=== PATIENT | female | born 1935 | race Caucasian/White ===

== ENCOUNTER 2017-02-22 06:33 | Inpatient (IN) | payer OTHER, BC ==
[~2017-02-22] VITALS: Ht 160 cm; Wt 89.1 kg
[~2017-02-22 06:33] MED LIST: ALBUTEROL SULF8.5 GM IH; AMLODIPINE BESY10 MG GT; AMLODIPINE BESY10 MG PO; APLISOL5 TUB UNIT ID; ASPIRIN81 M2 GT; ASPIRIN81 M2 PO; Aspirin E.C. PO; CARDIZEM CD120 MG PO; CATAPRES0.1 MG PO; CEFTIN500 MG PO; CITALOPRAM HBR10 MG GT; CITALOPRAM HBR10 MG PO; CLOPIDOGREL75 MG GT; CLOPIDOGREL75 MG PO; DITROPAN XL5 MG PO; DITROPAN5 MG PO; DOXYCYCLINE HY100 MG GT; DOXYCYCLINE HY100 MG PO; FLONASE16 G1 BOTH NARES; K-DUR20 MEQ PO; KEFLEX500 MG PO; KLOR-CON M2020 MEQ PO; LASIX40 MG PO; LEVOFLOXACIN500 MG PO; LIPITOR80 MG PO; LISINOPRIL10 MG PO; LOPRESSOR25 MG GT; LOW DOSE ASPIRI81 M1 PO; METHYLPREDNISOLO4 MG PO; MIRTAZAPINE15 MG PO; MIRTAZAPINE7.5 MG PO; MUCINEX DM ER1 EACH PO; NORVASC10 MG PO; NORVASC2.5 MG PO; OXCARBAZEPINE300 MG GT; OXCARBAZEPINE300 MG PO; PAXIL20 MG PO; PLAVIX75 MG PO; PRAVASTATIN SOD80 MG GT; PRAVASTATIN SOD80 MG PO; PROAIR HFA8.5 GM IH; REMERON15 M2 GT; TESSALON PERLE100 MG PO; TOPROL XL25 MG PO; TRILEPTAL300 MG PO; TRILEPTAL600 MG PO; TYLENOL EXTRA500 MG PO; TYLENOL REGULA325 MG PO; WELLBUTRIN XL300 MG PO; WELLBUTRIN75 MG PO; XARELTO15 MG PO; ZOCOR40 MG PO; ZYRTEC10 M2 PO
[2017-02-22 08:01] LABS: MCH 31.1 PG (29.0-34.0); MCHC 32.6 G/DL (30.0-36.0); MCV 95.5 FL (83-99); MEAN PLAT.VOLUME 9.5 uM^3 (9.5-12.4); PLATELET COUNT 221 K/uL (156-360); RBC DIS.WIDTH-CV 12.8 % (11.8-14.6); RBC DIS.WIDTH-SD 45.1 % (39-53); WHITE BLOOD COUNT 9.3 K/uL (4.1-10.2)
[2017-02-22 08:11] LABS: INTER. NORMALIZED RATIO 1.3; PROTHROMBIN TIME 12.8 (9.2-11.2)
[2017-02-22 08:22] LABS: CHLORIDE 103 mEq/L (99-109); POTASSIUM 4.2 mEq/L (3.7-5.4); SODIUM 140 mEq/L (136-147)
[2017-02-22 08:24] LABS: GLUCOSE 115 mg/dL (70-99)
[2017-02-22 08:25] LABS: ANION GAP 12 MEQ/L (2-14)
[2017-02-22 08:26] LABS: TOTAL BILIRUBIN 0.6 mg/dL (0.0-1.0)
[2017-02-22 08:27] LABS: ALKALINE PHOSPHATASE 123 IU/L (3-129); TROP-I INTERPRETATION NEGATIVE; TROPONIN-I 0.03 ng/mL (0.0-0.30)
[2017-02-22 08:28] LABS: GFR ESTIMATE (CALCULATED) 51 mL/min/
[2017-02-22 08:29] LABS: UREA NITROGEN (BUN) 22 mg/dL (9-23)
[2017-02-22 08:40] LABS: INFLUENZA A VIRAL ANTIGEN POSITIVE; INFLUENZA B VIRAL ANTIGEN NEGATIVE
[2017-02-22 08:51] LABS: ADD MIUA? YES; BILIRUBIN NEGATIVE; BLOOD LARGE; COLOR YELLOW ((YELLOW)); GLUCOSE (STRIP) NEGATIVE; KETONES NEGATIVE; LEUKOCYTES MODERATE; NITRITE NEGATIVE; PROTEIN (STRIP) 30; SPECIFIC GRAVITY 1.017 (1.000-1.030); UROBILINOGEN 0.2 MG/DL (0.2-1.0)
[2017-02-22 09:07] LABS: BACTERIA RARE /HPF; EPITHELIAL CELLS RARE /HPF; MUCUS TRACE /LPF; RED BLOOD CELLS 40-50 /HPF (0-5); WHITE BLOOD CELLS TNTC /HPF (0-5)
[2017-02-22] MEDS ORDERED: CARDIZEM CD120 MG PO (11:27)
[2017-02-22] MEDS ORDERED: PRINIVIL10 MG PO (11:28)
[2017-02-22] MEDS ORDERED: REMERON15 M2 PO (11:29)
[2017-02-22] MEDS ORDERED: DAILY VITAMIN1 EAC4 PO (11:31)
[2017-02-22] MEDS ORDERED: NORVASC10 MG PO (11:32)
[2017-02-22] MEDS ORDERED: LOPRESSOR25 MG PO (11:32)
[2017-02-22] MEDS ORDERED: NYSTATIN15 GM TP (11:33)
[2017-02-22] MEDS ORDERED: BESIVANCE5 ML LEFT EYE (11:34)
[2017-02-22] MEDS ORDERED: DUREZOL 0.100 DROP/5 LEFT EYE (11:34)
[2017-02-22] MEDS ORDERED: ILEVRO1.7 ML LEFT EYE (11:34)
[2017-02-22] MEDS ORDERED: CARDIZEM120 MG PO (12:56)
[2017-02-22 14:55] VITALS: BP 133/92
[2017-02-22 19:31] VITALS: BP 165/77
[2017-02-22 23:16] VITALS: BP 128/67
[2017-02-23 03:11] VITALS: BP 137/71
[2017-02-23 08:52] VITALS: BP 158/90
[2017-02-23 14:15] VITALS: BP 144/74
[2017-02-23 15:00] VITALS: BP 123/88
[2017-02-23 20:00] VITALS: BP 145/93
[2017-02-24] VITALS: BP 136/102
[2017-02-24 04:00] VITALS: BP 106/63
[2017-02-24 08:27] VITALS: BP 146/79
[2017-02-24 08:47] LABS: MCH 30.9 PG (29.0-34.0); MCHC 32.1 G/DL (30.0-36.0); MCV 96.3 FL (83-99); MEAN PLAT.VOLUME 9.9 uM^3 (9.5-12.4); PLATELET COUNT 234 K/uL (156-360); RBC DIS.WIDTH-CV 12.7 % (11.8-14.6); RED BLOOD COUNT 4.05 M/uL (3.80-5.20); WHITE BLOOD COUNT 6.6 K/uL (4.1-10.2)
[2017-02-24 09:02] LABS: ANION GAP 8 MEQ/L (2-14); CHLORIDE 107 MEQ/L (99-109); GFR ESTIMATE (CALCULATED) > 59 mL/min/; GLUCOSE 84 mg/dL (70-99); POTASSIUM 3.8 MEQ/L (3.7-5.4); SAMPLE HEMOLYSIS CHECK 0; SAMPLE ICTERIC CHECK 0; SAMPLE LIPEMIA CHECK 0; SODIUM 143 MEQ/L (136-147); UREA NITROGEN (BUN) 19 mg/dL (9-23)
[2017-02-24 22:51] VITALS: BP 151/93
[2017-02-25 06:52] LABS: MCH 31.7 PG (29.0-34.0); MCV 94.8 FL (83-99); RED BLOOD COUNT 4.01 M/uL (3.80-5.20); WHITE BLOOD COUNT 6.4 K/uL (4.1-10.2)
[2017-02-25 06:53] LABS: MCHC 33.4 G/DL (30.0-36.0); MEAN PLAT.VOLUME 9.8 uM^3 (9.5-12.4); PLATELET COUNT 257 K/uL (156-360); RBC DIS.WIDTH-CV 12.7 % (11.8-14.6); RBC DIS.WIDTH-SD 44.3 % (39-53)
[2017-02-25 07:20] LABS: ANION GAP 11 MEQ/L (2-14); CHLORIDE 106 MEQ/L (99-109); GFR ESTIMATE (CALCULATED) 57 mL/min/; GLUCOSE 85 mg/dL (70-99); POTASSIUM 4.2 MEQ/L (3.7-5.4); SAMPLE HEMOLYSIS CHECK 0; SAMPLE ICTERIC CHECK 0; SAMPLE LIPEMIA CHECK 0; SODIUM 143 MEQ/L (136-147); UREA NITROGEN (BUN) 21 mg/dL (9-23)
[2017-02-25 08:00] VITALS: BP 151/85
[2017-02-26] VITALS: BP 118/76
[2017-02-26 08:03] VITALS: BP 146/77
[2017-02-26] MEDS ORDERED: TAMIFLU30 MG PO (13:02)
== END 2017-02-26 14:21 | disposition home health service (06) | DRG 194 ==
LOC: EME 06:33 → 5SOUTH 10:56 → EDOF 10:56 → 5SOUTH 14:32
PROVIDERS: Emergency Medicine; Internal Medicine
DX: J10.1 Influenza due to other identified influenza virus with other respiratory manifestations (principal); N30.00 Acute cystitis without hematuria; I48.91 Unspecified atrial fibrillation; R55 Syncope and collapse; I25.10 Atherosclerotic heart disease of native coronary artery without angina pectoris; G89.29 Other chronic pain; F01.50 Vascular dementia, unspecified severity, without behavioral disturbance, psychotic disturbance, mood disturbance, and anxiety; R53.1 Weakness; R09.02 Hypoxemia; F32.9 Major depressive disorder, single episode, unspecified; I10 Essential (primary) hypertension; E78.5 Hyperlipidemia, unspecified; I25.2 Old myocardial infarction; Z86.73 Personal history of transient ischemic attack (TIA), and cerebral infarction without residual deficits; Z95.5 Presence of coronary angioplasty implant and graft; Z87.891 Personal history of nicotine dependence; Z88.2 Allergy status to sulfonamides; Z98.890 Other specified postprocedural states
CPT/HCPCS: 71020; 80048; 80053; 81003; 83605; 83880; 84484; 85027; 85610; 85730; 87040; 87502; 93005; 94640; 94640 76; 94799; 97530 GP; 99202; 99281; 99285; J0696; J7030; J7050

== ENCOUNTER 2017-10-26 11:30 | Emergency (ER) | payer OTHER, BC ==
[~2017-10-26] VITALS: Ht 162.6 cm; Wt 81.4 kg
[~2017-10-26 11:30] MED LIST changes: +BESIVANCE5 ML LEFT EYE; +CARDIZEM120 MG PO; +DAILY VITAMIN1 EAC4 PO; +DUREZOL 0.100 DROP/5 LEFT EYE; +ILEVRO1.7 ML LEFT EYE; +LOPRESSOR25 MG PO; +NYSTATIN15 GM TP; +PRINIVIL10 MG PO; +REMERON15 M2 PO; +TAMIFLU30 MG PO
[2017-10-26 12:44] LABS: ADD MIUA? YES; BILIRUBIN NEGATIVE; BLOOD MODERATE; COLOR YELLOW ((YELLOW)); GLUCOSE (STRIP) NEGATIVE; KETONES NEGATIVE; LEUKOCYTES LARGE; NITRITE POSITIVE; PROTEIN (STRIP) 30; SPECIFIC GRAVITY 1.016 (1.000-1.030); UROBILINOGEN 0.2 MG/DL (0.2-1.0)
[2017-10-26 12:49] LABS: EOSINOPHIL (%) 1.7 % (0-5); EOSINOPHIL COUNT 0.1 K/uL (0-0.3); HEMATOCRIT 40.6 % (36.0-46.0); IMMATURE GRANULOCYTE (%) 0.6 % (0.0-0.7); IMMATURE GRANULOCYTE COUNT 0.1 K/uL; INSTRUMENT ABS NEUTROPHIL CT 6.5 K/uL; LYMPHOCYTE COUNT 1.1 K/uL (1.0-2.8); MCH 32.1 PG (29.0-34.0); MCV 94.4 FL (83-99); MEAN PLAT.VOLUME 9.6 uM^3 (9.5-12.4); MONOCYTE (%) 7.5 % (3-12); MONOCYTE COUNT 0.6 K/uL (0-0.8); NEUTROPHIL (%) 76.8 % (45-76); NEUTROPHIL COUNT 6.5 K/uL (1.8-6.4); PLATELET COUNT 251 K/uL (156-360); RBC DIS.WIDTH-CV 12.4 % (11.8-14.6); RBC DIS.WIDTH-SD 43.2 % (39-53); WHITE BLOOD COUNT 8.4 K/uL (4.1-10.2)
[2017-10-26 12:55] LABS: INTER. NORMALIZED RATIO 1.5; PROTHROMBIN TIME 16.9 SEC (10.2-12.9)
[2017-10-26 12:58] LABS: PTT 46.2 SEC (25-37)
[2017-10-26 12:59] LABS: BACTERIA 1+ /HPF; EPITHELIAL CELLS RARE /HPF; HYALINE CASTS 0-5 /LPF; MUCUS TRACE /LPF; RED BLOOD CELLS 15-20 /HPF (0-5); UCUL ADDED? YES; WHITE BLOOD CELLS TNTC /HPF (0-5)
[2017-10-26 13:01] LABS: CHLORIDE 105 mEq/L (99-109); POTASSIUM 4.9 mEq/L (3.7-5.4); SODIUM 138 mEq/L (136-147)
[2017-10-26 13:02] LABS: MAGNESIUM 2.4 mg/dL (1.3-2.7)
[2017-10-26 13:04] LABS: GLUCOSE 117 mg/dL (70-99)
[2017-10-26 13:05] LABS: ANION GAP 10 MEQ/L (2-14)
[2017-10-26 13:06] LABS: TOTAL BILIRUBIN 0.3 mg/dL (0.0-1.0)
[2017-10-26 13:07] LABS: ALKALINE PHOSPHATASE 139 IU/L (3-129)
[2017-10-26 13:08] LABS: GFR ESTIMATE (CALCULATED) 38 mL/min/
[2017-10-26 13:09] LABS: UREA NITROGEN (BUN) 29 mg/dL (9-23)
[2017-10-26 13:10] LABS: TROP-I INTERPRETATION NEGATIVE; TROPONIN-I 0.01 ng/mL (0.0-0.30)
[2017-10-26] MEDS ORDERED: CIPRO500 MG PO (15:37)
[2017-10-26 16:06] VITALS: BP 119/72
== END 2017-10-26 16:09 | disposition home or self-care (01) ==
LOC: EME 11:30
PROVIDERS: Emergency Medicine
DX: N39.0 Urinary tract infection, site not specified (principal); F03.90 Unspecified dementia, unspecified severity, without behavioral disturbance, psychotic disturbance, mood disturbance, and anxiety; R45.1 Restlessness and agitation; R53.1 Weakness; R51 Headache; Z86.73 Personal history of transient ischemic attack (TIA), and cerebral infarction without residual deficits; I48.91 Unspecified atrial fibrillation; I10 Essential (primary) hypertension; E78.5 Hyperlipidemia, unspecified; Z88.2 Allergy status to sulfonamides; Z95.5 Presence of coronary angioplasty implant and graft; Z79.01 Long term (current) use of anticoagulants; Z86.14 Personal history of Methicillin resistant Staphylococcus aureus infection; Z87.440 Personal history of urinary (tract) infections; Z87.891 Personal history of nicotine dependence
CPT/HCPCS: 71010; 80053; 81003; 83605; 83735; 84484; 85025; 85610; 85730; 87040; 87077; 87086 GA; 87186; 93005; 99281; 99285; J0696; J1630; J2060

== ENCOUNTER 2018-03-06 20:21 | Observation (INO) | payer OTHER, BC ==
[~2018-03-06] VITALS: Ht 160 cm; Wt 78.1 kg
[~2018-03-06 20:21] MED LIST changes: +CIPRO500 MG PO
[2018-03-06 20:30] LABS: BASOPHIL (%) 0.4 % (0-1); EOSINOPHIL (%) 1.5 % (0-5); EOSINOPHIL COUNT 0.2 K/uL (0-0.3); HEMATOCRIT 40.7 % (36.0-46.0); HEMOGLOBIN 13.9 G/DL (11.9-15.5); IMMATURE GRANULOCYTE (%) 0.5 % (0.0-0.7); LYMPHOCYTE (%) 30.3 % (15-42); LYMPHOCYTE COUNT 3.2 K/uL (1.0-2.8); MCH 32.1 PG (29.0-34.0); MCHC 34.2 G/DL (30.0-36.0); MONOCYTE (%) 8.7 % (3-12); MONOCYTE COUNT 0.9 K/uL (0-0.8); NEUTROPHIL (%) 58.6 % (45-76); NEUTROPHIL COUNT 6.2 K/uL (1.8-6.4); PLATELET COUNT 285 K/uL (156-360); RBC DIS.WIDTH-CV 12.4 % (11.8-14.6); RBC DIS.WIDTH-SD 42.7 % (39-53); RED BLOOD COUNT 4.33 M/uL (3.80-5.20); WHITE BLOOD COUNT 10.6 K/uL (4.1-10.2)
[2018-03-06 20:51] LABS: AMYLASE 32 IU/L (1-118); CHLORIDE 100 mEq/L (99-109); POTASSIUM 4.5 mEq/L (3.7-5.4); SODIUM 137 mEq/L (136-147)
[2018-03-06 20:53] LABS: GLUCOSE 135 mg/dL (70-99)
[2018-03-06 20:56] LABS: SERUM ETHYL ALCOHOL < 10 mg/dL
[2018-03-06 20:57] LABS: CREATININE 1.3 mg/dL (0.6-1.3); GFR ESTIMATE (CALCULATED) 42 mL/min/; TROP-I INTERPRETATION NEGATIVE; TROPONIN-I 0.02 ng/mL (0.0-0.30); UREA NITROGEN (BUN) 20 mg/dL (9-23)
[2018-03-06 21:00] LABS: LIPASE 18 U/L (1.0-51.0)
[2018-03-06 21:08] LABS: PTT 35.4 SEC (25-37)
[2018-03-06 21:14] LABS: APPEARANCE SL.HAZY ((CLEAR)); BILIRUBIN NEGATIVE; BLOOD SMALL; GLUCOSE (STRIP) NEGATIVE; KETONES NEGATIVE; LEUKOCYTES TRACE; NITRITE NEGATIVE; PROTEIN (STRIP) 100; SPECIFIC GRAVITY 1.027 (1.000-1.030); UROBILINOGEN 0.2 MG/DL (0.2-1.0)
[2018-03-06 21:20] LABS: AMPHETAMINE NEGATIVE (500 ng/mL); BARBITURATES NEGATIVE (200 ng/mL); BENZODIAZEPINES NEGATIVE (150 ng/mL); BUPRENORPHINE NEGATIVE (10 ng/mL); COCAINE NEGATIVE (150 ng/mL); METHADONE NEGATIVE (200 ng/mL); METHAMPHETAMINE NEGATIVE (500 ng/mL); OPIATES (MORPHINE) NEGATIVE (100 ng/mL); OXYCODONE NEGATIVE (100 ng/mL); PHENCYCLIDINE NEGATIVE (25 ng/mL); PROPOXYPHENE NEGATIVE (300 ng/mL); THC CANNABINOIDS NEGATIVE (50 ng/mL); TRICYCLIC ANTIDEPRESSANTS NEGATIVE (300 ng/mL)
[2018-03-06] MEDS ORDERED: ASPIR 8181 M1 PO (21:36)
[2018-03-06 21:38] LABS: BACTERIA NONE SEEN /HPF; EPITHELIAL CELLS RARE /HPF; HYALINE CASTS TNTC /LPF; MUCUS 2+ /LPF; RED BLOOD CELLS 20-30 /HPF (0-5); UCUL ADDED? NO; WHITE BLOOD CELLS 0-5 /HPF (0-5)
[2018-03-06] MEDS ORDERED: NAMENDA5 MG PO (21:38)
[2018-03-06] MEDS ORDERED: BUSPAR10 MG PO (21:39)
[2018-03-06 21:40] LABS: COLOR YELLOW ((YELLOW))
[2018-03-06] MEDS ORDERED: LISINOPRIL10 MG PO (23:20)
[2018-03-06] MEDS ORDERED: METOPROLOL TART25 MG PO (23:20)
[2018-03-06] MEDS ORDERED: MIRTAZAPINE15 MG PO (23:20)
[2018-03-06] MEDS ORDERED: MEMANTINE HCL5 MG PO (23:20)
[2018-03-06] MEDS ORDERED: TRILEPTAL300 MG PO (23:24)
[2018-03-07] VITALS (8 sets, daily range): BP systolic 136–182; BP diastolic 73–110
[2018-03-07 01:27] LABS: HDL CHOLESTEROL 52 MG/DL (Desirable>=50); LDL CHOLESTEROL 63 mg/dL (Desirable<100); NON-HDL CHOLESTEROL 83 mg/dL (Desirable<160); TOTAL CHOLESTEROL 135 mg/dL (Desirable<200); TRIGLYCERIDES 101 MG/DL (Normal: <150)
[2018-03-07 03:31] LABS: TROP-I INTERPRETATION NEGATIVE; TROPONIN-I 0.25 ng/mL (0.0-0.30)
[2018-03-07 09:26] LABS: TROP-I INTERPRETATION NEGATIVE; TROPONIN-I 0.15 ng/mL (0.0-0.30)
[2018-03-08 04:04] VITALS: BP 160/74
[2018-03-08 06:48] LABS: BASOPHIL (%) 0.3 % (0-1); EOSINOPHIL (%) 2.6 % (0-5); EOSINOPHIL COUNT 0.2 K/uL (0-0.3); HEMATOCRIT 36.5 % (36.0-46.0); HEMOGLOBIN 12.5 G/DL (11.9-15.5); IMMATURE GRANULOCYTE (%) 0.3 % (0.0-0.7); LYMPHOCYTE (%) 32.5 % (15-42); LYMPHOCYTE COUNT 2.5 K/uL (1.0-2.8); MCH 32.1 PG (29.0-34.0); MCHC 34.2 G/DL (30.0-36.0); MCV 93.8 FL (83-99); MONOCYTE (%) 10.9 % (3-12); MONOCYTE COUNT 0.8 K/uL (0-0.8); NEUTROPHIL (%) 53.4 % (45-76); PLATELET COUNT 216 K/uL (156-360); RBC DIS.WIDTH-CV 12.6 % (11.8-14.6); RBC DIS.WIDTH-SD 43.4 % (39-53); RED BLOOD COUNT 3.89 M/uL (3.80-5.20); WHITE BLOOD COUNT 7.6 K/uL (4.1-10.2)
[2018-03-08 07:11] LABS: CHLORIDE 105 MEQ/L (99-109); CREATININE 1.2 MG/DL (0.6-1.3); GFR ESTIMATE (CALCULATED) 46 mL/min/; MAGNESIUM 1.7 mg/dl (1.3-2.7); POTASSIUM 3.9 MEQ/L (3.7-5.4); SODIUM 140 MEQ/L (136-147); UREA NITROGEN (BUN) 17 mg/dL (9-23)
[2018-03-08 07:24] LABS: GLUCOSE 80 mg/dL (70-99)
[2018-03-08 07:35] VITALS: BP 158/86
== END 2018-03-08 15:10 | disposition home or self-care (01) ==
LOC: EME 20:21 → 5SOUTH 03-07 00:30 → EDOF 03-07 00:30 → ENRESERV 03-07 00:32 → 5SOUTH 03-07 01:15 → ENPENDDIS 03-08 12:22 → 5SOUTH 03-08 15:10
PROVIDERS: Emergency Medicine; Hospitalist; Physician Assistant
DX: R55 Syncope and collapse (principal); F03.90 Unspecified dementia, unspecified severity, without behavioral disturbance, psychotic disturbance, mood disturbance, and anxiety; S00.11XA Contusion of right eyelid and periocular area, initial encounter; I10 Essential (primary) hypertension; I25.10 Atherosclerotic heart disease of native coronary artery without angina pectoris; I48.91 Unspecified atrial fibrillation; Z95.5 Presence of coronary angioplasty implant and graft; Z86.73 Personal history of transient ischemic attack (TIA), and cerebral infarction without residual deficits; Z87.440 Personal history of urinary (tract) infections; Z91.81 History of falling; R31.29 Other microscopic hematuria; G93.89 Other specified disorders of brain; Z90.49 Acquired absence of other specified parts of digestive tract; Z87.891 Personal history of nicotine dependence; Z86.59 Personal history of other mental and behavioral disorders; Z88.2 Allergy status to sulfonamides; Z80.51 Family history of malignant neoplasm of kidney; Z84.1 Family history of disorders of kidney and ureter; Z82.49 Family history of ischemic heart disease and other diseases of the circulatory system
CPT/HCPCS: 70450; 70551; 72125; 80047; 80048; 80061; 81003; 82150; 83036; 83690; 83735; 84484; 85025; 85610; 85730; 86850; 86900; 86901; 87086; 92610 GN; 93005; 93306; 93880; 95819; 99281; 99285; G0378; G0480; G8987 CK; G8988 GO CJ; J1644; J7030

== ENCOUNTER 2018-04-18 15:43 | Inpatient (IN) | payer OTHER, BC ==
[~2018-04-18] VITALS: Ht 165.1 cm; Wt 77.5 kg
[~2018-04-18 15:43] MED LIST changes: +ASPIR 8181 M1 PO; +BUSPAR10 MG PO; +MEMANTINE HCL5 MG PO; +METOPROLOL TART25 MG PO; +NAMENDA5 MG PO
[2018-04-18 16:36] LABS: HEMATOCRIT 37.8 % (36.0-46.0); MCH 32.3 PG (29.0-34.0); MCHC 34.4 G/DL (30.0-36.0); PLATELET COUNT 226 K/uL (156-360); RBC DIS.WIDTH-CV 12.7 % (11.8-14.6); RBC DIS.WIDTH-SD 43.7 % (39-53); RED BLOOD COUNT 4.02 M/uL (3.80-5.20); WHITE BLOOD COUNT 8.9 K/uL (4.1-10.2)
[2018-04-18 16:44] LABS: CHLORIDE 99 mEq/L (99-109); POTASSIUM 4.5 mEq/L (3.7-5.4); SODIUM 135 mEq/L (136-147)
[2018-04-18 16:46] LABS: GLUCOSE 130 mg/dL (70-99)
[2018-04-18 16:50] LABS: CREATININE 1.4 mg/dL (0.6-1.3); GFR ESTIMATE (CALCULATED) 38 mL/min/
[2018-04-18 16:51] LABS: UREA NITROGEN (BUN) 23 mg/dL (9-23)
[2018-04-18 18:11] LABS: APPEARANCE CLOUDY ((CLEAR)); BILIRUBIN NEGATIVE; BLOOD LARGE; COLOR YELLOW ((YELLOW)); GLUCOSE (STRIP) NEGATIVE; KETONES NEGATIVE; LEUKOCYTES MODERATE; NITRITE NEGATIVE; PROTEIN (STRIP) NEGATIVE; SPECIFIC GRAVITY 1.016 (1.000-1.030); UROBILINOGEN 0.2 MG/DL (0.2-1.0)
[2018-04-18 18:45] LABS: BACTERIA RARE /HPF; EPITHELIAL CELLS 2+ /HPF; HYALINE CASTS 15-20 /LPF; MUCUS TRACE /LPF; RED BLOOD CELLS 20-30 /HPF (0-5); UCUL ADDED? YES; WHITE BLOOD CELLS 30-40 /HPF (0-5)
[2018-04-18] MEDS ORDERED: PRAVACHOL80 MG PO (20:53)
[2018-04-18] MEDS ORDERED: NYSTATIN60 GM TP (20:54)
[2018-04-18] MEDS ORDERED: TRILEPTAL600 MG PO (20:54)
[2018-04-18] MEDS ORDERED: MUCINEX1200 MG PO (20:55)
[2018-04-18 21:53] VITALS: BP 140/80
[2018-04-18 22:37] VITALS: BP 120/58
[2018-04-18 23:44] VITALS: BP 145/58
[2018-04-19] VITALS (14 sets, daily range): BP systolic 113–180; BP diastolic 54–135
[2018-04-19 05:45] LABS: BASOPHIL (%) 0.3 % (0-1); EOSINOPHIL (%) 0.6 % (0-5); EOSINOPHIL COUNT 0.1 K/uL (0-0.3); HEMOGLOBIN 13.4 G/DL (11.9-15.5); IMMATURE GRANULOCYTE (%) 0.4 % (0.0-0.7); LYMPHOCYTE (%) 13.5 % (15-42); LYMPHOCYTE COUNT 1.3 K/uL (1.0-2.8); MCH 31.8 PG (29.0-34.0); MCHC 33.5 G/DL (30.0-36.0); MCV 94.8 FL (83-99); MONOCYTE COUNT 1.3 K/uL (0-0.8); NEUTROPHIL (%) 72.2 % (45-76); PLATELET COUNT 199 K/uL (156-360); RBC DIS.WIDTH-CV 12.8 % (11.8-14.6); RED BLOOD COUNT 4.22 M/uL (3.80-5.20); WHITE BLOOD COUNT 9.7 K/uL (4.1-10.2)
[2018-04-19 06:22] LABS: CHLORIDE 102 MEQ/L (99-109); CREATININE 1.3 MG/DL (0.6-1.3); GFR ESTIMATE (CALCULATED) 42 mL/min/; POTASSIUM 4.3 MEQ/L (3.7-5.4); SODIUM 138 MEQ/L (136-147); UREA NITROGEN (BUN) 19 mg/dL (9-23)
[2018-04-19 06:36] LABS: GLUCOSE 81 mg/dL (70-99)
[2018-04-19 13:04] LABS: CHLORIDE 102 MEQ/L (99-109); CREATININE 1.3 MG/DL (0.6-1.3); GFR ESTIMATE (CALCULATED) 42 mL/min/; MAGNESIUM 1.6 mg/dl (1.3-2.7); SODIUM 137 MEQ/L (136-147); UREA NITROGEN (BUN) 20 mg/dL (9-23)
[2018-04-19 13:05] LABS: GLUCOSE 150 mg/dL (70-99); TROP-I INTERPRETATION NEGATIVE; TROPONIN-I 0.02 ng/mL (0.0-0.30)
[2018-04-20] VITALS (21 sets, daily range): BP systolic 96–175; BP diastolic 51–113
[2018-04-20 05:12] LABS: HEMOGLOBIN 12.1 G/DL (11.9-15.5); MCH 31.3 PG (29.0-34.0); MCHC 33.6 G/DL (30.0-36.0); PLATELET COUNT 223 K/uL (156-360); RBC DIS.WIDTH-CV 12.7 % (11.8-14.6); RBC DIS.WIDTH-SD 43.4 % (39-53); RED BLOOD COUNT 3.87 M/uL (3.80-5.20); WHITE BLOOD COUNT 8.2 K/uL (4.1-10.2)
[2018-04-20 06:50] LABS: CHLORIDE 102 MEQ/L (99-109); GFR ESTIMATE (CALCULATED) 57 mL/min/; POTASSIUM 4.2 MEQ/L (3.7-5.4); SODIUM 138 MEQ/L (136-147); UREA NITROGEN (BUN) 16 mg/dL (9-23)
[2018-04-20 06:51] LABS: GLUCOSE 97 mg/dL (70-99)
[2018-04-21 00:55] VITALS: BP 120/80
[2018-04-21 03:38] VITALS: BP 150/82
[2018-04-21 03:55] VITALS: BP 150/82
[2018-04-21 08:12] VITALS: BP 163/92
[2018-04-21 08:53] LABS: HEMATOCRIT 37.6 % (36.0-46.0); MCH 32.4 PG (29.0-34.0); MCHC 34.6 G/DL (30.0-36.0); MCV 93.8 FL (83-99); PLATELET COUNT 239 K/uL (156-360); RBC DIS.WIDTH-CV 12.8 % (11.8-14.6); RBC DIS.WIDTH-SD 43.9 % (39-53); RED BLOOD COUNT 4.01 M/uL (3.80-5.20); WHITE BLOOD COUNT 7.3 K/uL (4.1-10.2)
[2018-04-21 09:23] LABS: ALBUMIN 3.2 G/DL (3.2-4.8); ALKALINE PHOSPHATASE 102 IU/L (3-129); ALT (GPT) 20 IU/L (3-49); AST (GOT) 28 IU/L (2-34); CHLORIDE 103 MEQ/L (99-109); GFR ESTIMATE (CALCULATED) 57 mL/min/; GLUCOSE 114 mg/dL (70-99); POTASSIUM 4.1 MEQ/L (3.7-5.4); SODIUM 138 MEQ/L (136-147); TOTAL BILIRUBIN 0.5 MG/DL (0.0-1.0); UREA NITROGEN (BUN) 20 mg/dL (9-23)
[2018-04-21 16:26] VITALS: BP 142/90
[2018-04-21 20:10] VITALS: BP 177/75
[2018-04-22 00:01] VITALS: BP 177/87
[2018-04-22 03:59] VITALS: BP 146/76
[2018-04-22 08:00] VITALS: BP 161/90
[2018-04-22] MEDS ORDERED: LOPRESSOR50 MG PO (11:33)
[2018-04-22] MEDS ORDERED: CEFTIN500 MG PO (11:33)
[2018-04-22 11:53] VITALS: BP 134/93
== END 2018-04-22 13:01 | DRG 194 ==
LOC: EME 15:43 → EDOF 20:52 → 5SOUTH 20:52 → 4WEST 20:52 → ENRESERV 20:57 → 5SOUTH 21:37 → 4WEST 04-19 12:43 → ENRESERV 04-20 → 4WEST 04-20 16:42 → ENRESERV 04-20 16:45 → 5EAST 04-20 20:50
PROVIDERS: Hospitalist; Internal Medicine Critical Care Medicine; Physician Assistant
DX: J15.9 Unspecified bacterial pneumonia (principal); N39.0 Urinary tract infection, site not specified; I48.2 Chronic atrial fibrillation; R00.1 Bradycardia, unspecified; R09.02 Hypoxemia; F03.90 Unspecified dementia, unspecified severity, without behavioral disturbance, psychotic disturbance, mood disturbance, and anxiety; I10 Essential (primary) hypertension; I25.10 Atherosclerotic heart disease of native coronary artery without angina pectoris; E78.5 Hyperlipidemia, unspecified; F32.9 Major depressive disorder, single episode, unspecified; I08.0 Rheumatic disorders of both mitral and aortic valves; F95.8 Other tic disorders; Z66 Do not resuscitate; I25.2 Old myocardial infarction; Z95.5 Presence of coronary angioplasty implant and graft; Z79.82 Long term (current) use of aspirin; Z86.73 Personal history of transient ischemic attack (TIA), and cerebral infarction without residual deficits; Z87.01 Personal history of pneumonia (recurrent); Z87.440 Personal history of urinary (tract) infections; Z87.891 Personal history of nicotine dependence; Z86.14 Personal history of Methicillin resistant Staphylococcus aureus infection; Z91.81 History of falling; Z88.2 Allergy status to sulfonamides
CPT/HCPCS: 71046; 71260; 80048; 80048 91; 80053; 81003; 82948; 83605; 83735; 83880; 84484; 85025; 85027; 87040; 87070; 87086; 87205; 87449; 87641; 93005; 93970; 94799; 99281; 99285; J0360; J0456; J0610; J0696; J1644; J3475; J7030; J7050

== ENCOUNTER 2018-06-19 15:07 | Emergency (ER) | payer OTHER, BC ==
[~2018-06-19] VITALS: Ht 152.4 cm; Wt 80.2 kg
[~2018-06-19 15:07] MED LIST changes: +LOPRESSOR50 MG PO; +MUCINEX1200 MG PO; +NYSTATIN60 GM TP; +PRAVACHOL80 MG PO
[2018-06-19 16:50] LABS: HEMATOCRIT 39.7 % (36.0-46.0); HEMOGLOBIN 13.5 G/DL (11.9-15.5); MCH 32.4 PG (29.0-34.0); MCV 95.2 FL (83-99); PLATELET COUNT 282 K/uL (156-360); RBC DIS.WIDTH-SD 45.1 % (39-53); RED BLOOD COUNT 4.17 M/uL (3.80-5.20)
[2018-06-19 16:58] LABS: CHLORIDE 110 mEq/L (99-109); POTASSIUM 5.2 mEq/L (3.7-5.4); SODIUM 146 mEq/L (136-147)
[2018-06-19 17:00] LABS: GLUCOSE 104 mg/dL (70-99)
[2018-06-19 17:04] LABS: CREATININE 1.2 mg/dL (0.6-1.3); GFR ESTIMATE (CALCULATED) 46 mL/min/
[2018-06-19 17:05] LABS: UREA NITROGEN (BUN) 31 mg/dL (9-23)
[2018-06-19 18:38] VITALS: BP 129/95
== END 2018-06-19 19:32 ==
LOC: EME 15:07
PROVIDERS: Emergency Medicine
DX: S09.90XA Unspecified injury of head, initial encounter (principal); F01.50 Vascular dementia, unspecified severity, without behavioral disturbance, psychotic disturbance, mood disturbance, and anxiety; W18.30XA Fall on same level, unspecified, initial encounter; Y92.129 Unspecified place in nursing home as the place of occurrence of the external cause; I48.91 Unspecified atrial fibrillation; E78.5 Hyperlipidemia, unspecified; F32.9 Major depressive disorder, single episode, unspecified; I10 Essential (primary) hypertension; I25.2 Old myocardial infarction; Z86.73 Personal history of transient ischemic attack (TIA), and cerebral infarction without residual deficits; Z95.5 Presence of coronary angioplasty implant and graft; Z88.2 Allergy status to sulfonamides; Z87.891 Personal history of nicotine dependence
CPT/HCPCS: 70450; 80048; 85027; 93005; 99281; 99284